=== PATIENT | male | born 1980 | race African-American/Black ===

== ENCOUNTER 2019-04-02 08:11 | Outpatient (CLI) | payer OTHER ==
--- NOTE | 2019-04-02 08:50 | RAD ---
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 Heart size: Within normal limits. Lungs: Clear of acute process. No evidence for active TB. IMPRESSION: No significant acute intrathoracic disease.
== END 2019-04-02 08:12 | disposition home or self-care (01) ==
LOC: BICRAD 08:11
PROVIDERS: ATTEND Internal Medicine Pulmonary Disease
DX: R76.11 Nonspecific reaction to tuberculin skin test without active tuberculosis (principal)
CPT/HCPCS: 71045

== ENCOUNTER 2020-08-19 17:29 | Emergency (ER) | payer SELFPAY | END 2020-08-19 19:21 | LOC: ERS 17:29 | DX: Z02.89 Encounter for other administrative examinations (principal); I10 Essential (primary) hypertension; F41.9 Anxiety disorder, unspecified; F32.9 Major depressive disorder, single episode, unspecified; F17.210 Nicotine dependence, cigarettes, uncomplicated | CPT/HCPCS: 93005 ==